=== PATIENT | female | born 1965 | race Caucasian/White ===

== ENCOUNTER 2019-03-07 19:30 | Emergency (ER) | payer MEDICARE, MEDICAID ==
[2019-03-07] MEDS ORDERED: Sodium Chloride 0.9% 1,000 ML IV SCH (19:45)
--- NOTE | 2019-03-07 20:15 | EDM.PDOC ---
ED HPI GENERAL MEDICAL PROBLEM - General Chief Complaint: Lower Extremity Injury/Pain Stated Complaint: RIGHT FOOT PAIN Time Seen by Provider: 03/07/19 20:10 Source of Information: Reports: Patient - History of Present Illness INITIAL COMMENTS - FREE TEXT/NARRATIVE: HISTORY AND PHYSICAL: History of present illness: [Patient with Buerger's disease presents with dusky foot for 2 weeks, skin sloughing on the distal toes a couple of small pressure ulceration lesions, was able to obtain a Doppler pulse is quite faint she has had some increased dusky appearance which has prompted her visit today I did speak with the ER in mind that he was willing to accept her as well as vascular surgeon Dr. Holden Bailey, she'll treatment required however he will consult through the ER as necessary to help develop a plan of treatment as to the nature of the chronicity versus acute ischemia, no specific immediate treatment recommendations at this time Unfortunately we did not have ground transport available until 11 PM tonight, and the patient is refusing air transport hence a private vehicle transfer directly to [facility] is our fastest route at this time Review of systems: As per history of present illness and below otherwise all systems reviewed and negative. Past medical history: As per history of present illness and as reviewed below otherwise noncontributory. Surgical history: As per history of present illness and as reviewed below otherwise noncontributory. Social history: No reported history of drug or alcohol abuse. Family history: As per history of present illness and as reviewed below otherwise noncontributory. Physical exam: HEENT: Atraumatic, normocephalic, pupils reactive, negative for conjunctival pallor or scleral icterus, mucous membranes moist, throat clear, neck supple, nontender, trachea midline. Lungs: Clear to auscultation, breath sounds equal bilaterally, chest nontender. Heart: S1S2, regular, negative for clicks, rubs, or JVD. Abdomen: Soft, nondistended, nontender. Negative for masses or hepatosplenomegaly. Negative for costovertebral tenderness. Pelvis: Stable nontender. Genitourinary: Deferred. Rectal: Deferred. Extremities: Atraumatic, negative for cords or calf pain. Neurovascular unremarkable. Left foot amputation noted, right foot as per history of present illness Neuro: Awake, alert, oriented. Cranial nerves II through XII unremarkable. Cerebellum unremarkable. Motor and sensory unremarkable throughout. Exam nonfocal. Diagnostics: [CBC CMP blood cultures 2 ] Therapeutics: [Normal saline ] Impression: [Buerger's disease Acute versus chronic vascular compromise right distal foot ] Definitive disposition and diagnosis as appropriate pending reevaluation and review of above. right Foot Pain Score (Numeric/FACES): 7 - Related Data Allergies Allergy/AdvReac Type Severity Reaction Status Date / Time No Known Allergies Allergy Verified 03/07/19 19:39 Home Meds: Home Meds Aspirin [Pam Chewable] 325 mg PO DAILY 04/09/16 [History] Past Medical History HEENT History: Reports: None Cardiovascular History: Reports: Other (See Below) Other Cardiovascular History: Burgers disease Respiratory History: Reports: None Gastrointestinal History: Reports: None Genitourinary History: Reports: None [employer] History: Reports: None Musculoskeletal History: Reports: Amputation Other Musculoskeletal History: Left leg below the knee Neurological History: Reports: None Psychiatric History: Reports: None Endocrine/Metabolic History: Reports: None Hematologic History: Reports: None Immunologic History: Reports: None Oncologic (Cancer) History: Reports: None Dermatologic History: Reports: None - Infectious Disease History Infectious Disease History: Reports: Chicken Pox - Past Surgical History Head Surgeries/Procedures: Reports: None Cardiovascular Surgical History: Reports: Vascular Surgery Social & Family History - Family History Family Medical History: Noncontributory - Tobacco Use Smoking Status *Q: Never Smoker Second Hand Smoke Exposure: No - Caffeine Use Caffeine Use: Reports: Coffee - Recreational Drug Use Recreational Drug Use: No Review of Systems - Review of Systems Review Of Systems: See Below ED EXAM, GENERAL - Physical Exam Exam: See Below Course - Vital Signs Last Recorded V/S: Last Vital Signs Temp 96.7 F 03/07/19 19:36 Pulse 107 H 03/07/19 19:58 Resp 18 03/07/19 19:58 BP 115/76 03/07/19 19:58 Pulse Ox 98 03/07/19 19:58 - Orders/Labs/Meds Orders: Active Orders 24 hr Category Date Time Status CBC WITH AUTO DIFF [HEME] Stat Lab 03/07/19 19:42 Ordered COMPREHENSIVE METABOLIC PN,CMP [CHEM] Stat Lab 03/07/19 19:42 Ordered CULTURE BLOOD [BC] Stat Lab 03/07/19 19:42 Ordered CULTURE BLOOD [BC] Stat Lab 03/07/19 19:42 Ordered Sodium Chloride 0.9% [Normal Saline] 1,000 ml Med 03/07/19 19:45 Active IV STAT Blood Culture x2 Reflex Set [OM.PC] Stat Oth 03/07/19 19:42 Ordered Medication Orders Sodium Chloride (Normal Saline) 1,000 mls @ 125 mls/hr IV STAT TWIN Last Admin: 03/07/19 19:58 Dose: 125 mls/hr Meds: Medications Generic Name Dose Route Start Last Admin Trade Name Lisandro PRN Reason Stop Dose Admin Sodium Chloride 1,000 mls @ 125 mls/hr 03/07/19 19:45 03/07/19 19:58 Normal Saline IV 125 mls/hr STAT TWIN Administration Departure - Departure Time of Disposition: 20:14 Disposition: Home, Self-Care 01 Condition: Poor Clinical Impression: Bergers disease - Discharge Information Referrals: PCP,None [Primary Care Provider] - Additional Instructions: Proceed directly to [facility], the ER is expecting your prompt arrival - My Orders Last 24 Hours: My Active Orders 03/07/19 19:42 CBC WITH AUTO DIFF [HEME] Stat COMPREHENSIVE METABOLIC PN,CMP [CHEM] Stat CULTURE BLOOD [BC] Stat CULTURE BLOOD [BC] Stat Blood Culture x2 Reflex Set [OM.PC] Stat 03/07/19 19:45 Sodium Chloride 0.9% [Normal Saline] 1,000 ml IV STAT - Assessment/Plan Last 24 Hours: My Active Orders 03/07/19 19:42 CBC WITH AUTO DIFF [HEME] Stat COMPREHENSIVE METABOLIC PN,CMP [CHEM] Stat CULTURE BLOOD [BC] Stat CULTURE BLOOD [BC] Stat Blood Culture x2 Reflex Set [OM.PC] Stat 03/07/19 19:45 Sodium Chloride 0.9% [Normal Saline] 1,000 ml IV STAT
[2019-03-07 20:24] VITALS: BP 123/86
[2019-03-07 20:50] LABS: CHLORIDE,CL 97 mmol/L (98-107); SODIUM,NA 135 mmol/L (136-145)
== END 2019-03-07 20:35 ==
LOC: MW.ED 19:30
DX: I73.1 Thromboangiitis obliterans [Buerger's disease] (principal); Z79.82 Long term (current) use of aspirin
CPT/HCPCS: 36415; 80053; 85025; 87040; 96360; 99284; J7040

== ENCOUNTER 2024-03-11 11:25 | Emergency (ER) | payer MEDICARE, MEDICAID ==
[2024-03-11] MEDS: Sodium Chloride 0.9% 1,000 ML IV ONE ×2 (12:07→16:12)
[2024-03-11] MEDS: Sodium Chloride 0.9% 10 ML Syringe FLUSH PRN (12:09)
[2024-03-11] MEDS: Sodium Chloride 0.9% 2.5 ML Syringe FLUSH PRN (12:09)
[2024-03-11 12:21] LABS: LACTIC ACID 2.3 mmol/L (0.4-2.0)
[2024-03-11 12:40] LABS: CORONAVIRUS COVID-19 NAA NEGATIVE (NEGATIVE); INFLUENZA A NAA NEGATIVE (NEGATIVE); INFLUENZA B NAA NEGATIVE (NEGATIVE)
[2024-03-11 12:57] LABS: BASOPHILS ABSOLUTE AUTO 0.02 K/uL (0.00-0.20); BASOPHILS PERCENT AUTO 0.1 % (0.0-1.0); EOSINOPHILS ABSOLUTE AUTO 0.01 K/uL (0.00-0.45); HEMATOCRIT 20.6 % (37.0-47.0); HEMOGLOBIN 7.4 g/dL (12.0-16.0); IMMATURE GRAN PERCENT AUTO 0.5 % (0.0-0.4); LYMPHOCYTES ABSOLUTE AUTO 1.62 K/uL (1.00-4.80); LYMPHOCYTES PERCENT AUTO 7.8 % (24.0-44.0); MEAN CORPUSCULAR HEMOGLOBIN 33.3 pg (28.0-32.0); MEAN CORPUSCULAR HGB CONC 35.9 g/dL (32.0-36.0); MEAN CORPUSCULAR VOLUME 92.8 fL (83.0-99.0); MEAN PLATELET VOLUME 12.1 fL (9.4-12.3); MONOCYTES ABSOLUTE AUTO 0.86 K/uL (0.00-0.80); MONOCYTES PERCENT AUTO 4.1 % (0.0-8.0); NEUTROPHILS ABSOLUTE AUTO 18.26 K/uL (1.80-7.70); NEUTROPHILS PERCENT AUTO 87.5 % (41.0-71.0); PLATELET COUNT,PLT 60 K/uL (150-400); RED BLOOD CELL COUNT 2.22 M/uL (4.10-5.30); WHITE BLOOD CELL COUNT,WBC 20.87 K/uL (3.9-11.3)
[2024-03-11 13:21] LABS: A/G RATIO 0.4 (0.9-1.6); ALANINE AMINOTRANSFERASE,ALT 6 IU/L (14-63); ALBUMIN 1.2 g/dL (3.4-5.0); ALKALINE PHOSPHATASE 76 U/L (46-116); ASPARTATE AMNIOTRANSFERASE,AST 24 IU/L (15-37); BLOOD UREA NITROGEN,BUN 10 mg/dL (7.0-18.0); CALCIUM 7.3 mg/dL (8.5-10.1); CARBON DIOXIDE,CO2 43.2 mmol/L (21.0-32.0); CHLORIDE,CL 81 mmol/L (98-107); CREATININE 0.8 mg/dL (0.6-1.0); GLUCOSE RANDOM 92 mg/dL (74-106); MAGNESIUM 0.7 mg/dL (1.8-2.4); PROTEIN TOTAL,TP 4.6 g/dL (6.4-8.2); SODIUM,NA 125 mmol/L (136-145); TSH ULTRASENSITIVE 1.78 uIU/mL (0.36-3.74)
[2024-03-11 13:23] LABS: ESTIMATED GFR 85 mL/min (>60); POTASSIUM,K 1.8 mmol/L (3.5-5.1)
[2024-03-11] MEDS: Magnesium Sulfate/Water 2 GM in Premix Bag 1 BAG IV ONE (13:59)
[2024-03-11] MEDS: NS with KCl 40mEq 1,000 ML IV SCH ×2 (13:59→20:51)
[2024-03-11 14:15] LABS: APPEARANCE,URINE CLOUDY; COLOR,URINE YELLOW; GLUCOSE,URINE NEGATIVE (NEGATIVE); KETONES,URINE NEGATIVE (NEGATIVE); LEUKOCYTE ESTERASE,URINE TRACE (NEGATIVE); NITRITE,URINE NEGATIVE (NEGATIVE); OCCULT BLOOD,URINE TRACE-INTACT (NEGATIVE); PROTEIN,URINE TRACE mg/dL (NEGATIVE)
[2024-03-11 14:18] LABS: BILIRUBIN,URINE SMALL (NEGATIVE)
[2024-03-11 14:21] LABS: BACTERIA,URINE 3+ (NEGATIVE); EPITHELIAL CELLS,URINE RARE (NONE-FEW); RBC,URINE 0-2 (0-2/HPF)
[2024-03-11] MEDS: Iopamidol 755 MG/ML 500 ML Multipack Bottle IVPUSH STA (15:04)
[2024-03-11] MEDS: LORazepam 2 MG/ML SDV IVPUSH ONE (16:29)
[2024-03-11] MEDS: Piperacillin/Tazobactam 4.5 GM in Sodium Chloride 0.9% 100 ML IV ONE (19:17)
[2024-03-11 22:29] LABS: AMPHETAMINES SCREEN, URINE NEGATIVE (CUTOFF=500); BARBITURATE SCREEN,URINE NEGATIVE (CUTOFF=200); BENZODIAZEPINES SCREEN,URINE NEGATIVE (CUTOFF=150); BUPRENORPHINE SCREEN,URINE NEGATIVE (CUTOFF=10); METHADONE SCREEN, URINE NEGATIVE (CUTOFF=200); METHAMPHETAMINES SCREEN, URINE NEGATIVE (CUTOFF=500); OXYCODONE SCREEN,URINE NEGATIVE (CUT0FF=100); PCP SCREEN,URINE NEGATIVE (CUTOFF=25); THC SCREEN,URINE 20 NG/ML NEGATIVE (CUTOFF=50)
[2024-03-11 22:49] LABS: BASE EXCESS VENOUS 15.1 (-2.0-3.0); BICARBONATE,VENOUS 40 mEQ/mL (22-28); PCO2 VENOUS 53 mmHG (41-51); PH,VENOUS 7.48 (7.31-7.41)
[2024-03-11 22:53] LABS: PO2 VENOUS < 30 mmHG (80-100)
[2024-03-11] MEDS: Albuterol/Ipratropium 3.0-0.5 MG/3 ML Neb Soln NEB ONE (23:59)
[2024-03-12 00:03] VITALS: BP 134/80; PULSE 119
== END 2024-03-12 00:34 ==
LOC: MW.ED 11:25
DX: A41.9 Sepsis, unspecified organism (principal); I70.0 Atherosclerosis of aorta; K52.9 Noninfective gastroenteritis and colitis, unspecified; E87.6 Hypokalemia; E83.42 Hypomagnesemia; D72.829 Elevated white blood cell count, unspecified; D73.5 Infarction of spleen
CPT/HCPCS: 0240U; 36415; 51702; 70450; 71045; 74177; 80053; 80305; 80307; 81001; 81003; 82140; 82803; 83605; 83735; 84443; 84484; 85025; 87040; 87086; 93005; 96361; 96365; 96366; 96367; 96368; 96375; 99285; J2060; J2543; J3475; J3480; J3490; J7030; Q9967; 93010; J7620-GY